=== PATIENT | male | born 1950 | race Caucasian/White ===

== ENCOUNTER 2016-10-21 08:46 | Day surgery (SDC) | payer BC, OTHER ==
[~2016-10-21] VITALS: Ht 167.6 cm; Wt 67.0 kg
[~2016-10-21 08:46] MED LIST: ASACOL HD800 MG PO; BUPROPION XL150 MG PO; CITALOPRAM HBR20 MG PO; CYANOCOBAL1000 MCG/2 IM; Colace PO; Ecotrin PO; FEROSUL220 MG/51 PO; FOLIC ACID0.4 MG PO; Folic Acid PO; LOFIBRA,TRIGLI160 MG PO; MEN'S 50+ DAIL1 EACH PO; NIACOR500 MG PO; Niacin PO; PANTOPRAZOLE SO40 MG PO; TAMSULOSIN HCL0.4 MG PO; VITAMIN B-122000 MC1 PO; VITAMIN D31000 UNIT PO; ZOLPIDEM TARTRA10 MG PO
== END 2016-10-21 11:00 | disposition home or self-care (01) ==
LOC: CATH 08:46
DX: C17.2 Malignant neoplasm of ileum (principal); I87.8 Other specified disorders of veins; Z86.718 Personal history of other venous thrombosis and embolism; Z79.899 Other long term (current) drug therapy; Z83.3 Family history of diabetes mellitus
CPT/HCPCS: C1752; C1894; J0690; J1644; J2250; J3010; S0020

== ENCOUNTER 2016-11-06 15:44 | Inpatient (IN) | payer BC ==
[~2016-11-06] VITALS: Ht 167.6 cm; Wt 63.6 kg
[2016-11-06 17:36] LABS: EOSINOPHIL (%) 2.5 % (0-5); EOSINOPHIL COUNT 0.1 K/uL (0-0.3); HEMATOCRIT 34.2 % (38.0-50.0); IMMATURE GRANULOCYTE (%) 0.6 % (0.0-0.7); LYMPHOCYTE COUNT 0.6 K/uL (1.0-2.8); MCH 29.6 PG (29.0-34.0); MCHC 34.8 G/DL (30.0-36.0); MEAN PLAT.VOLUME 9.9 uM^3 (9.0-12.4); MONOCYTE (%) 14.5 % (3-12); MONOCYTE COUNT 0.5 K/uL (0-0.8); PLATELET COUNT 122 K/uL (156-360); RBC DIS.WIDTH-CV 15.4 % (11.8-14.6); RBC DIS.WIDTH-SD 46.1 % (39-53); RED BLOOD COUNT 4.02 M/uL (4.00-5.50); WHITE BLOOD COUNT 3.2 K/uL (4.1-10.2)
[2016-11-06 17:38] LABS: MCV 85.1 FL (86-99)
[2016-11-06 17:49] LABS: CHLORIDE 113 mEq/L (99-109); SODIUM 140 mEq/L (136-147)
[2016-11-06 17:51] LABS: GLUCOSE 93 mg/dL (70-99)
[2016-11-06 17:52] LABS: ANION GAP 12 MEQ/L (2-14)
[2016-11-06 17:53] LABS: TOTAL BILIRUBIN 0.3 mg/dL (0.0-1.0)
[2016-11-06 17:55] LABS: ALKALINE PHOSPHATASE 101 IU/L (3-129); GFR ESTIMATE (CALCULATED) > 59 mL/min/
[2016-11-06 17:56] LABS: UREA NITROGEN (BUN) 4 mg/dL (9-23)
[2016-11-06 17:58] LABS: TROP-I INTERPRETATION NEGATIVE; TROPONIN-I < 0.01 ng/mL (0.0-0.30)
[2016-11-06 18:01] LABS: POTASSIUM 2.3 mEq/L (3.7-5.4)
[2016-11-06] MEDS ORDERED: BUPROPION XL300 MG PO (18:44)
[2016-11-06] MEDS ORDERED: FENOFIBRATE160 M1 PO (18:44)
[2016-11-06] MEDS ORDERED: CYANOCOBAL1000 MCG/2 IM (18:45)
[2016-11-06] MEDS ORDERED: OMEPRAZOLE40 M1 PO (18:45)
[2016-11-06] MEDS ORDERED: MEN 50 PLUS MU1 EACH PO (18:46)
[2016-11-06] MEDS ORDERED: PROBIOTIC1 EAC1 PO (18:47)
[2016-11-06] MEDS ORDERED: POTASSIUM CHLO10 ME4 PO (18:47)
[2016-11-06] MEDS ORDERED: CARAFATE100 MG/ML PO (18:47)
[2016-11-06] MEDS ORDERED: PROMETHAZINE HC25 M1 PO (18:47)
[2016-11-06] MEDS ORDERED: ZOFRAN ODT4 MG PO (18:48)
[2016-11-06] MEDS ORDERED: METOCLOPRAMIDE10 MG PO (18:48)
[2016-11-06] MEDS ORDERED: FLONASE16 G1 BOTH NARES (18:48)
[2016-11-06] MEDS ORDERED: AMBIEN10 MG PO (18:48)
[2016-11-06] MEDS ORDERED: LORAZEPAM0.5 MG PO (18:49)
[2016-11-06] MEDS ORDERED: OXYCODONE H5 MG/5 ML PO (18:49)
[2016-11-06] MEDS ORDERED: MAGIC MOUTHWASH (18:50)
[2016-11-06 21:13] LABS: MAGNESIUM 1.4 mg/dL (1.3-2.7)
[2016-11-06 21:51] VITALS: BP 132/80
[2016-11-07 01:05] LABS: TROP-I INTERPRETATION NEGATIVE; TROPONIN-I < 0.01 ng/mL (0.0-0.30)
[2016-11-07 04:27] VITALS: BP 119/63
[2016-11-07 07:06] LABS: HEMATOCRIT 29.5 % (38.0-50.0); MCH 30.8 PG (29.0-34.0); MCHC 35.6 G/DL (30.0-36.0); MCV 86.5 FL (86-99); MEAN PLAT.VOLUME 11.2 uM^3 (9.0-12.4); PLATELET COUNT 108 K/uL (156-360); RBC DIS.WIDTH-CV 15.8 % (11.8-14.6); RBC DIS.WIDTH-SD 48.5 % (39-53); RED BLOOD COUNT 3.41 M/uL (4.00-5.50); WHITE BLOOD COUNT 2.6 K/uL (4.1-10.2)
[2016-11-07 07:33] LABS: ANION GAP 10 MEQ/L (2-14); CHLORIDE 115 MEQ/L (99-109); GFR ESTIMATE (CALCULATED) > 59 mL/min/; GLUCOSE 91 mg/dL (70-99); SAMPLE HEMOLYSIS CHECK 0; SAMPLE ICTERIC CHECK 0; SAMPLE LIPEMIA CHECK 0; SODIUM 142 MEQ/L (136-147); UREA NITROGEN (BUN) 2 mg/dL (9-23)
[2016-11-07 07:35] LABS: POTASSIUM 2.8 MEQ/L (3.7-5.4)
[2016-11-07 07:36] LABS: TROP-I INTERPRETATION NEGATIVE; TROPONIN-I 0.01 ng/mL (0.0-0.30)
[2016-11-07 08:30] VITALS: BP 140/75
[2016-11-07] MEDS ORDERED: MAGNESIUM400 M1 PO (12:22)
[2016-11-07] MEDS ORDERED: KLOR-CON M2020 MEQ PO (12:22)
== END 2016-11-07 13:29 | disposition home or self-care (01) | DRG 641 ==
LOC: EME 15:44 → EDOF 20:31 → 5EAST 21:44
PROVIDERS: Emergency Medicine; Hospitalist
DX: E87.6 Hypokalemia (principal); K50.90 Crohn's disease, unspecified, without complications; K90.9 Intestinal malabsorption, unspecified; E53.8 Deficiency of other specified B group vitamins; I10 Essential (primary) hypertension; E78.1 Pure hyperglyceridemia; E78.5 Hyperlipidemia, unspecified; F32.9 Major depressive disorder, single episode, unspecified; E87.2 Acidosis; D61.818 Other pancytopenia; T45.1X5A Adverse effect of antineoplastic and immunosuppressive drugs, initial encounter; C17.9 Malignant neoplasm of small intestine, unspecified; N40.0 Benign prostatic hyperplasia without lower urinary tract symptoms
CPT/HCPCS: 71020; 71275; 80048; 80053; 83605; 83735; 84132; 84132 91; 84484; 85025; 85027; 86870; 86900; 86901; 86905; 86920; 93005; 99281; 99285; J1644; J3420; J3480; J7030; J7040

== ENCOUNTER → 2017-01-13 | Outpatient (CLI) | payer BC ==
[~2017-01-13] MED LIST changes: +AMBIEN10 MG PO; +BUPROPION XL300 MG PO; +CARAFATE100 MG/ML PO; +FENOFIBRATE160 M1 PO; +FLONASE16 G1 BOTH NARES; +KLOR-CON M2020 MEQ PO; +LORAZEPAM0.5 MG PO; +MAGIC MOUTHWASH; +MAGNESIUM400 M1 PO; +MEN 50 PLUS MU1 EACH PO; +METOCLOPRAMIDE10 MG PO; +OMEPRAZOLE40 M1 PO; +OXYCODONE H5 MG/5 ML PO; +POTASSIUM CHLO10 ME4 PO; +PROBIOTIC1 EAC1 PO; +PROMETHAZINE HC25 M1 PO; +ZOFRAN ODT4 MG PO
== END | disposition home or self-care (01) ==
LOC: AMB 08:48
DX: Z45.2 Encounter for adjustment and management of vascular access device (principal); I87.8 Other specified disorders of veins; Z92.21 Personal history of antineoplastic chemotherapy